=== PATIENT | male | born 1975 | race African-American/Black ===

== ENCOUNTER 2023-07-20 23:59 | Emergency (ER) | payer OTHER, SELFPAY ==
[2023-07-21 00:06] VITALS: BP 137/93; PULSE 89; RESP 16; TEMP 36.5; O2SAT 99; BMI 27.4
[2023-07-21 01:06] LABS: Appearance Urine Clear; Color Urine Dark Yellow; Glucose Urine UA Negative (Negative); Leukocyte Esterase Urine Negative (Negative); Nitrite Urine Negative (Negative); PH 5.5 (5.0-9.0); Specific Gravity - Urine >= 1.030 (1.005-1.025); Urine Blood Negative (Negative); Urine Ketones Trace mg/dL (Negative); Urine Protein Trace mg/dL (Neg-Trace)
[2023-07-21 01:14] LABS: Bacteria Urine None Seen (None Seen); Hyaline Casts Urine 0-2 /LPF (0-2); Squamous Epithelial Cell Urine 0-2 /HPF (0-2); WBC Urine 0-5 /HPF (0-5)
[2023-07-21] MEDS: cephALEXin 500 MG CAPSULE PO (01:38)
--- NOTE | 2023-07-21 01:39 | ED_ITS ---
HPI - Skin/Abscess/Foreign Bdy General Chief complaint: Skin/Abscess/Foreign Body Stated complaint: abscess on private area Time Seen by Provider: 07/21/23 01:26 Source: patient Mode of arrival: ambulatory Limitations: no limitations History of Present Illness HPI narrative: 48 yo male no PMH of DM here with c/o worsening ingrown hair on proximal penis shaft that had some purulence draining out of it x 3 days, no systemic symptoms, no other issues, has not had this before. denies any other lesions MD complaint: abscess/boil Onset (ago): day(s) (3) Tetanus up to date: yes Location: genitals Severity: mild Quality: aching Pain Consistency: intermittent Relieving factors: none Exacerbating factors: none Context: none Associated symptoms: denies other symptoms Treatments prior to arrival: none Related Data Previous Rx's Medication Instructions Recorded cephalexin 500 mg capsule 500 mg PO QID 7 days #28 caps 07/21/23 mupirocin 2 % topical ointment 1 appl topical BID 7 days #15 grams 07/21/23 Allergies Allergy/AdvReac Type Severity Reaction Status Date / Time No Known Allergies Allergy Verified 07/21/23 01:34 Review of Systems Review of Systems: Constitutional : No Fever, No Chills ENT/Mouth : No sore throat, No Rhinorrhea Eyes: No Eye Pain, No Swelling, No Redness Cardiovascular : No Chest Pain, No SOB Respiratory : No Cough, No Sputum Gastrointestinal : No Nausea, No Vomiting, No Diarrhea, No abdominal Pain Genitourinary : No Dysuria, No Hematuria Musculoskeletal : No joint pain, No Myalgias, No Joint Swelling Skin : No Skin Lesions, positive skin rash Neuro : No Weakness, No Numbness, No Headache Psych : No Anxiety, No Depression All other systems reviewed and are negative [facility] Past Medical History Medical History (Updated 07/21/23 @ 01:46 by Hannah Dodd DO) No pertinent past medical history Social History Social History (Updated 07/21/23 @ 01:46 by Hannah Dodd DO) Patient Tobacco Use Status: Tobacco use Unknown Physical Exam Vital Signs: Vital Signs: Last Vital Signs Temp 97.7 F 07/21/23 00:06 Pulse 89 07/21/23 00:06 Resp 16 07/21/23 00:06 BP 137/93 H 07/21/23 00:06 Pulse Ox 99 07/21/23 00:06 O2 Del Method Room Air 07/21/23 00:06 BMI result Body Mass Index 27.4 Appearance: Alert. Oriented X3. No acute distress. Eyes: Pupils equal, round and reactive to light. ENT: Pharynx normal. Neck: Normal inspection. Neck supple. CVS: Normal heart rate and rhythm. Pulses normal. Respiratory: No respiratory distress. Breath sounds normal. Abdomen: Soft and nontender. : prox shaft of penis one small drained pustule no other redness or crepitus no swelling Skin: Skin warm and dry. Normal skin color. Normal skin turgor. Extremities: No lower extremity edema. No calf ttp Neuro: Oriented X 3. No motor deficit. No sensory deficit. Medications Administered Discontinued Medications Generic Name Dose Route Start Last Admin Trade Name Freq PRN Reason Stop Dose Admin Cephalexin HCl 500 mg 07/21/23 01:32 07/21/23 01:38 Cephalexin 500 Mg Capsule PO 07/21/23 01:33 500 mg ONCE ONE Administration Medical Decision Making Medical Decision Making [facility] Narrative: 48 yo male denies PMH here with c/o boil on proximal shaft of penis at this time will obtain RPR it is a drained boil he is not toxic - will start on cephalexin and mupirocin he is a little hesitant to show me full exam but denies any other lesions. No signs of yun's. Differential Diagnosis Differential Diagnoses: The differential diagnosis associated with the presentation includes syphillis, boil, cellulitis Lab Data [facility] Lab Attestation statement: I reviewed the patient's lab results. Labs: Lab Results 07/21/23 Range/Units 00:59 Urine Color Dark Yellow Urine Appearance Clear Urine pH 5.5 (5.0-9.0) Ur Specific [place] >= 1.030 H (1.005-1.025) Urine Protein Trace (Neg-Trace) mg/dL Urine Glucose (UA) Negative (Negative) mg/dL Urine Ketones Trace (Negative) mg/dL Urine Blood Negative (Negative) Urine Nitrite Negative (Negative) Ur Leukocyte Esterase Negative (Negative) Urine RBC 3-5 H (0-2) /HPF Urine WBC 0-5 (0-5) /HPF Ur Squamous Epith Cells 0-2 (0-2) /HPF Urine Bacteria None Seen (None Seen) Hyaline Casts 0-2 (0-2) /LPF Prescription Management I considered prescription management with: Antibiotic and Other Discharge Plan Discharge Clinical Impression: Boil Patient Disposition: Home, Self-Care Instructions: Abscess (ED) Additional Instructions: use ointment and antibiotic. keep area clean and dry. return for worsening pain, swelling, fevers or any other concerns. On a cephalosporin?antibiotic, softer bowel movements are to be expected. Call your provider if you move your bowels more than 4 times a day, your bowel movements are almost all liquid, or you get a rash.?? Take a probiotic while you are on antibiotics and for at least one week after the antibiotics are finished - this can help protect your GI system from diarrhea and other issues. You can get probiotics by drinking kefir, eating yogurt or culturelle or another pill form of probiotic. Do not take it at the same time as you take the antibiotic.?More than 6 to 8 loose stools a day is not normal seek care if this happens Prescriptions: New cephalexin 500 mg capsule 500 mg PO QID 7 Days Qty: 28 0RF mupirocin 2 % ointment 1 appl topical BID 7 Days Qty: 15 0RF
[2023-07-21 03:56] LABS: Syphilis Screen Nonreactive (Nonreactive)
== END 2023-07-21 01:58 | disposition home or self-care (01) ==
LOC: HO.ED 07-21 01:57
PROVIDERS: Emergency Provider Emergency Medicine
DX: N48.21 Abscess of corpus cavernosum and penis (principal); Z79.899 Other long term (current) drug therapy
CPT/HCPCS: 36415; 81001; 86780; 99282; 99283